=== PATIENT | female | born 1985 | race Caucasian/White ===

== ENCOUNTER 2018-05-12 09:54 | Emergency (ER) | payer MEDICAID ==
[~2018-05-12] VITALS: Ht 162.6 cm; Wt 69.4 kg
[2018-05-12 09:57] VITALS: Ht 162.6 cm; Wt 69.4 kg
[2018-05-12] MEDS ORDERED: CEPH500C PO (14:14)
[2018-05-12 15:16] VITALS: BP 135/78; PULSE 79; RESP 19
--- NOTE | 2018-05-12 19:15 | ERD ---
ER Documentation Chief Complaint Chief Complaint vaginal bleeding - LMP 02/06/18 HPI This is a 32-year-old patient who presents with complaint of bleeding last night while urinating x2. States it was bright red blood. Denies passing any tissue. States she is 3 months . LMP 02/06/2018. Does not had any care as of yet. She is . Denies abdominal cramping, currently no bleeding, describes lower pelvic pain as sharp and stabbing. Denies significant medical history. ROS All systems reviewed and are negative except as per history of present illness. Medications Home Meds Active Scripts Cephalexin* (Cephalexin*) 500 Mg Capsule, 500 MG PO BID for 10 Days, #20 CAP Prov:ERASTO HARP NETWORK RELATIONS CONSULTANT 05/12/18 Allergies Allergies: Coded Allergies: No Known Allergy (Unverified , 05/12/18) PMhx/Soc Medical and Surgical Hx: pt denies Medical Hx, pt denies Surgical Hx Hx Alcohol Use: No Hx Substance Use: No Hx Tobacco Use: No Smoking Status: Never smoker FmHx Family History: No diabetes, No coronary disease, No other Physical Exam Vitals Vital Signs Date Temp Pulse Resp B/P (MAP) Pulse Ox O2 O2 Flow FiO2 Time Delivery Rate 05/12/18 98.0 79 19 135/78 100 15:16 (97) 05/12/18 97.7 92 19 146/65 100 09:57 (92) Physical Exam GENERAL APPEARANCE: Well developed, well nourished, alert and cooperative, and appears to be in no acute distress. HEAD: normocephalic. EYES: PERRL, EOMI. Vision is grossly intact. EARS: External auditory canals and tympanic membranes clear, hearing grossly intact. NOSE: No nasal discharge. THROAT: Oral cavity and pharynx normal. No inflammation, swelling, exudate, or lesions. Teeth and gingiva in good general condition. NECK: Neck supple, non-tender without lymphadenopathy, masses or thyromegaly. CARDIAC: Normal S1 and S2. No S3, S4 or murmurs. Rhythm is regular. There is no peripheral edema, cyanosis or pallor. Extremities are warm and well perfused. Capillary refill is less than 2 seconds. No carotid bruits. LUNGS: Clear to auscultation and percussion without rales, rhonchi, wheezing or diminished breath sounds. ABDOMEN: Positive bowel sounds. Soft, non-distended, non-tender. No guarding or rebound. fundus palpated approx 3 finger width below umbilicus. MUSCULOSKELETAL: Adequately aligned spine. ROM intact spine and extremities. No joint erythema or tenderness. Normal muscular development. Normal gait. BACK: Examination of the spine reveals normal gait and posture, no spinal deformity, symmetry of spinal muscles, without tenderness, decreased range of motion or muscular spasm. NEUROLOGICAL: CN II-XII intact. Strength and sensation symmetric and intact throughout. SKIN: Skin normal color, texture and turgor with no lesions or eruptions PSYCHIATRIC: The mental examination revealed the patient was oriented to person, place, and time. The patient was able to demonstrate good judgment and reason, without hallucinations, abnormal affect or abnormal behaviors during the examination. Patient is not suicidal. Result Diagram: 05/12/18 1302 Results 24 hrs Laboratory Tests Test 05/12/18 12:53 05/12/18 13:02 Urine Color YELLOW Urine Clarity SLIGHTLY CLOUDY Urine pH 7.0 Urine Specific [place] 1.011 Urine Ketones TRACE mg/dL Urine Nitrite NEGATIVE mg/dL Urine Bilirubin NEGATIVE mg/dL Urine Urobilinogen NEGATIVE mg/dL Urine Leukocyte Esterase 3+ Cecile/ul Urine Microscopic RBC 11 /HPF Urine Microscopic WBC 9 /HPF Urine Squamous Epithelial Cells FEW /HPF Urine Bacteria FEW /HPF Urine Mucus FEW /HPF Urine Hemoglobin 2+ mg/dL Urine Glucose NEGATIVE mg/dL Urine Total Protein NEGATIVE mg/dl White Blood Count 10.6 10^3/ul Red Blood Count 4.37 10^6/ul Hemoglobin 13.0 g/dl Hematocrit 39.8 % Mean Corpuscular Volume 91.1 fl Mean Corpuscular Hemoglobin 29.7 pg Mean Corpuscular Hemoglobin Concent 32.7 g/dl Red Cell Distribution Width 13.8 % Platelet Count 226 10^3/UL Mean Platelet Volume 10.8 fl Immature Granulocytes % 0.600 % Neutrophils % 75.4 % Lymphocytes % 17.7 % Monocytes % 5.9 % Eosinophils % 0.1 % Basophils % 0.3 % Nucleated Red Blood Cells % 0.0 /100WBC Immature Granulocytes # 0.060 10^3/ul Neutrophils # 8.0 10^3/ul Lymphocytes # 1.9 10^3/ul Monocytes # 0.6 10^3/ul Eosinophils # 0.0 10^3/ul Basophils # 0.0 10^3/ul Nucleated Red Blood Cells # 0.0 10^3/ul Beta HCG, Quantitative 375585.0 mIU/ml PROCEDURE: US OB. CLINICAL INDICATION: Vaginal bleeding TECHNIQUE: Transabdominal views of the pelvis are available for review. COMPARISON: No prior studies are available for comparison. FINDINGS: There is a single intrauterine gestation with the crown-rump length measuring 8.6 cm, corresponding to a gestational age of 14 weeks and 3 days. The heart rate is noted at 154 bpm. The right ovary was not seen. The left ovary is normal and measures 2.6 x 1.3 x 2.0 cm. There is no free fluid. RPTAT: AA IMPRESSION: Single live intrauterine with an estimated gestational age of 14 weeks and 3 days, based on ultrasound measurements. ASTRID based on ultrasound measurements is 11/07/18. .Elkin Thomas MD, MD Date Time Electronically viewed and signed by .Elkin Thomas MD, MD on 05/12/2018 13:52 Blood type O+ Procedures/MDM Is a 32-year-old female who presents with complaint of bleeding with urination. Patient believes that she is 3 months . This is her first . Patient was evaluated for urinary tract infection, pyelonephritis, threatened , ABO incompatible . Blood test: pt O+ Ultrasound results: There is a single intrauterine gestation with the crown-rump length measuring 8.6 cm, corresponding to a gestational age of 14 weeks and 3 days. The heart rate is noted at 154 bpm. The right ovary was not seen. The left ovary is normal and measures 2.6 x 1.3 x 2.0 cm. There is no free fluid. IMPRESSION: Single live intrauterine with an estimated gestational age of 14 weeks and 3 days, based on ultrasound measurements. ASTRID based on ultrasound measurements is 11/07/18. Patient urinalysis positive for urinary tract infection. Given reassuring ultrasound results and absence of current bleeding there is a low likelihood of a threatened . As the patient's blood results are all positive she is not at risk for ABO incompatible . Beta hCG significantly elevated to support continued . There is low suspicion for pyelonephritis, vaginitis, STI, or interstitial cystitis due to absence of clinical findings that would support a diagnosis more serious than uncomplicated UTI. These diagnoses have been considered and excluded clinically. Nonetheless, it is understood by both the patient and provider that no clinical or diagnostic assessment can entirely exclude such diseases. Patient has been instructed on signs and symptoms of concern or with evolving condition with strict instructions to return to ED for reevaluation. Patient provided with all laboratory and ultrasound results to bring to her bulb grader. Instructed patient to complete entire course of antibiotics, increase hydration, use only Tylenol for fever or discomfort. Strict instructions given to follow- up with patient's HEALTHCARE SALES REPRESENTATIVE in the next 48 hours or to return to this ER for reevaluation. All instructions provided through [employer]. She verbalized understanding of instructions and appreciative of care. Departure Condition: Stable Patient Instructions: Understanding Urinary Tract Infections (UTIs), Adapting to : First Trimester Referrals: HEALTHCARE SALES REPRESENTATIVE [place] [address] [facility] [address] [place], [place] [id number] OFFICE FAX DR.ABUSLEME CRISTAL [address] [place], [place] [id number] [facility] [address] [place], [place] [id number] DR DUFFY [facility] [address] [facility] [facility] [address] [address] [address] [place], [place] [phone] [facility] [address] [place] [address] [address] [facility] [id number] - ARYAN MURRIETA [address], [facility] [place] [id number] DR SAENZ, T[place] [address] [facility]. [address], [place] [id number] EVELIA BEAN [address] [place] [address] Additional Instructions: Take entire course of antibiotics. Increase hydration. Follow-up ALIX with bulb grader. Return to the emergency room with any cramping, bleeding, fever. Thank you very much for allowing us to participate in your care. Your health and safety is our top priority at [facility]. Call your primary care doctor TOMORROW for an appointment during the next 1-2 days and bring all the information and medications prescribed. Have prescriptions filled and follow precisely the directions on the label. If the symptoms get worse and your provider is unavailable, return to the Emergency Department immediately. ERASTO HARP NP May 12, 2018 19:07
== END 2018-05-12 15:17 | disposition home or self-care (01) ==
LOC: FTE 09:54
DX: O23.42 Unspecified infection of urinary tract in pregnancy, second trimester (principal); R10.2 Pelvic and perineal pain; Z3A.14 14 weeks gestation of pregnancy
CPT/HCPCS: 76801; 81001; 84702; 85025; 86900; 86901; Z7502

== ENCOUNTER 2018-11-10 02:40 | Inpatient (IN) | payer MEDICAID ==
[~2018-11-10] VITALS: Ht 160 cm; Wt 84.1 kg
[~2018-11-10 02:40] MED LIST: CALC600T24 PO; CEPH500C PO; DOCU-144 PO; IBUP-1542 PO; PREN-19 PO
[2018-11-10 03:03] VITALS: BP 115/60; PULSE 75; RESP 16
[2018-11-10] MEDS ORDERED: LACTATED RINGER'S 1,000 ML IV PRN (03:10)
[2018-11-10] MEDS ORDERED: CARBOPROST 250 MCG INJ IM PRN ×2 (03:30→18:00)
[2018-11-10] MEDS ORDERED: AMPICILLIN 2 GM/NS (PMX) 100 ML IV ONE (03:30)
[2018-11-10] MEDS ORDERED: LIDOCAINE 1% (MPF) 30 ML INJ INJ PRN (03:30)
[2018-11-10] MEDS ORDERED: OXYTOCIN 30 UNITS/LR 500 ML IV PRN ×2 (03:30→18:00)
[2018-11-10] MEDS ORDERED: MISOPROSTOL 200 MCG TAB PR PRN ×2 (03:30→18:00)
[2018-11-10] MEDS ORDERED: METHYLERGONOVINE 0.2 MG INJ IM PRN ×2 (03:30→18:00)
[2018-11-10] MEDS ORDERED: OXYTOCIN 30 UNITS/LR 500 ML IV SCH ×4 (03:30→17:40)
[2018-11-10] MEDS ORDERED: BUTORPHANOL 2 MG INJ IV PRN ×2 (03:30)
[2018-11-10] MEDS ORDERED: MINERAL OIL LIGHT 10 ML VIAL TOP PRN (03:30)
[2018-11-10] MEDS ORDERED: IBUPROFEN 600 MG TAB PO PRN (03:30)
[2018-11-10] MEDS: LACTATED RINGER'S 1,000 ML IV SCH ×3 (04:10→11:00)
[2018-11-10] MEDS: MISOPROSTOL 50 MCG CAPSULE PO SCH ×2 (05:06→12:00)
[2018-11-10] MEDS ORDERED: AMPICILLIN 1 GM/NS (PMX) 50 ML IV SCH (07:30)
[2018-11-10] MEDS ORDERED: CEFAZOLIN 2 GM/50 ML (PMX) 50 ML IVPB SCH (08:30)
[2018-11-10] MEDS ORDERED: ONDANSETRON 4 MG INJ IV STA (11:04)
[2018-11-10] MEDS ORDERED: ONDANSETRON 4 MG INJ ONE ×2 (11:04→12:09)
[2018-11-10] MEDS ORDERED: CITRIC ACID/NA CITRATE 30 ML CUP ONE (11:05)
[2018-11-10] MEDS ORDERED: CITRIC ACID/NA CITRATE 30 ML CUP PO ONE (11:30)
[2018-11-10] MEDS ORDERED: CEFAZOLIN 1 GM INJ ONE (12:00)
[2018-11-10] MEDS ORDERED: PHENYLephrine (100 MCG/ML) 10ML SYG ONE (12:04)
[2018-11-10] MEDS ORDERED: morphine SULFATE/PF (10 MG/10 ML) INJ ONE (12:05)
[2018-11-10] MEDS ORDERED: OXYTOCIN 10 UNIT INJ ONE (12:05)
[2018-11-10] MEDS ORDERED: DEXAMETHASONE 4 MG/ML 1 ML INJ ONE (12:09)
[2018-11-10] MEDS ORDERED: KETOROLAC 30 MG INJ ONE (12:09)
[2018-11-10] MEDS ORDERED: METOCLOPRAMIDE 10 MG INJ ONE (12:09)
[2018-11-10] MEDS ORDERED: MEPERIDINE 100 MG INJ ONE (12:32)
[2018-11-10 17:00] VITALS: BP 115/72; PULSE 71; RESP 18
[2018-11-10] MEDS ORDERED: ACETAMINOPHEN 500 MG TAB PO PRN (17:30)
[2018-11-10] MEDS ORDERED: ONDANSETRON 4 MG INJ IV PRN (17:30)
[2018-11-10] MEDS ORDERED: morphine 2 MG INJ IV PRN ×2 (17:30)
[2018-11-10] MEDS ORDERED: NALOXONE (0.4 MG/ML) INJ IV PRN (17:30)
[2018-11-10] MEDS ORDERED: HYDROmorphONE 0.5 MG/0.5 ML SYG IV PRN ×2 (17:30)
[2018-11-10] MEDS ORDERED: DIPHENHYDRAMINE 50 MG INJ IV PRN (17:30)
[2018-11-10] MEDS ORDERED: HYDROCODONE/APAP (5/325) TAB PO PRN (17:30)
[2018-11-10] MEDS ORDERED: NALBUPHINE HCL (10 MG/1 ML) INJ IV PRN (17:30)
[2018-11-10] MEDS ORDERED: LANOLIN HPA 1 PKT TOP PRN (18:00)
[2018-11-10] MEDS: IBUPROFEN 600 MG TAB PO SCH (18:00)
[2018-11-10] MEDS ORDERED: NACL 0.9% 3 ML SYG IV SCH (18:00)
[2018-11-10 19:30] VITALS: BP 113/55; PULSE 64; RESP 18
[2018-11-11 00:15] VITALS: BP 110/55; PULSE 59; RESP 18
[2018-11-11] MEDS: KETOROLAC 30 MG INJ IV PRN ×2 (03:30→11:38)
[2018-11-11 04:30] VITALS: BP 118/65; PULSE 69; RESP 18
[2018-11-11] MEDS: IBUPROFEN 600 MG TAB PO SCH ×5 (06:00→23:45)
[2018-11-11 08:00] VITALS: BP 103/59; PULSE 80; RESP 18
[2018-11-11 12:00] VITALS: BP 105/60; PULSE 65; RESP 20
[2018-11-11] MEDS: OXYCODONE/ACETAMINOPHEN (5/325) TAB PO PRN (17:15)
[2018-11-11 19:25] VITALS: BP 103/56; PULSE 78; RESP 18
[2018-11-12 03:42] VITALS: BP 97/52; PULSE 74; RESP 18
[2018-11-12] MEDS: IBUPROFEN 600 MG TAB PO SCH ×2 (05:38→11:22)
[2018-11-12 08:00] VITALS: BP 106/65; PULSE 72; RESP 16
[2018-11-12 11:00] VITALS: BP 103/62; PULSE 72
[2018-11-12 11:02] VITALS: BP 104/68; PULSE 71
[2018-11-12 11:04] VITALS: BP 108/69; PULSE 58
[2018-11-12] MEDS: OXYCODONE/ACETAMINOPHEN (5/325) TAB PO PRN (11:22)
[2018-11-13] MEDS ORDERED: DIPHTH/TET/ACEL PERTUSS (ADULT) 0.5 ML VIAL IM* ONE (09:00)
== END 2018-11-12 15:30 | disposition home or self-care (01) | DRG 807 ==
LOC: L-D 02:40 → OBT 02:40 → L-D 03:25 → PP1 16:57
PROVIDERS: ADMIT Obstetrics & Gynecology; ATTEND Obstetrics & Gynecology
PROC: 10E0XZZ Delivery of Products of Conception, External Approach (ICD-10-PCS; principal; 2018-11-10 11:00)
DX: O36.63X0 Maternal care for excessive fetal growth, third trimester, not applicable or unspecified (principal); Z37.0 Single live birth; O48.0 Post-term pregnancy; Z3A.40 40 weeks gestation of pregnancy
CPT/HCPCS: 76815; 85025; 85610; 85730; 86592; 86850; 86900; 86901; 87340; 99464; G0463; J0290; J0690; J1100; J1885; J2175; J2210; J2274; J2370; J2405; J2590; J2765; J7120